=== PATIENT | female | born 1990 | race Caucasian/White ===

== ENCOUNTER 2016-08-15 17:00 | Emergency (ER) | payer OTHER | END 2016-08-15 18:05 | disposition home or self-care (01) | LOC: ER1 17:00 | DX: S00.85XA Superficial foreign body of other part of head, initial encounter (principal); F17.210 Nicotine dependence, cigarettes, uncomplicated; W45.8XXA Other foreign body or object entering through skin, initial encounter; Y92.009 Unspecified place in unspecified non-institutional (private) residence as the place of occurrence of the external cause | CPT/HCPCS: 99283 ==

== ENCOUNTER 2021-01-25 04:33 | Inpatient (IN) | payer OTHER ==
[~2021-01-25 04:33] MED LIST: KEFLEX CAP 500500 MG PO; LODINE CAP 300300 MG PO; PYRIDIUM100 MG PO; ZOFRAN ODT 4 MG4 MG SL
[2021-01-25 05:36] LABS: HEMOGLOBIN 12.6 gm/dl (12.3-15.3); RED BLOOD COUNT 4.28 M/UL (4.00-5.10); WHITE BLOOD COUNT 9.3 K/UL (4.5-11.0)
[2021-01-26 11:10] LABS: HIV SCREEN 4TH GENERATION WRFX Non Reactive (Non Reactive)
[2021-01-26 13:11] LABS: TREPONEMA PALLIDUM ANTIBODIES Non Reactive (Non Reactive)
[2021-01-27 07:11] LABS: HBSAG SCREEN Negative (Negative); HCV ANTIBODY <0.1 (0.0-0.9)
== END 2021-01-25 07:41 | disposition short-term general hospital (02) | DRG 832 ==
LOC: GENOP 04:33 → CDU 04:58
PROVIDERS: ADMIT Obstetrics & Gynecology
PROC: 4A1HXCZ Monitoring of Products of Conception, Cardiac Rate, External Approach (ICD-10-PCS; principal; 2021-01-25)
DX: O42.913 Preterm premature rupture of membranes, unspecified as to length of time between rupture and onset of labor, third trimester (principal); O99.323 Drug use complicating pregnancy, third trimester; O99.343 Other mental disorders complicating pregnancy, third trimester; Z3A.33 33 weeks gestation of pregnancy; F41.9 Anxiety disorder, unspecified; F32.9 Major depressive disorder, single episode, unspecified; F17.210 Nicotine dependence, cigarettes, uncomplicated; F12.90 Cannabis use, unspecified, uncomplicated; O99.333 Smoking (tobacco) complicating pregnancy, third trimester
CPT/HCPCS: 80307; 81001; 85025; 86780; 86803; 86900; 86901; 87340; 87389; 96360; 96365; 96367; 96372; J0702; J3475; U0002

== ENCOUNTER 2021-09-21 14:23 | Emergency (ER) | payer OTHER ==
[2021-09-21 15:25] LABS: HEMOGLOBIN 15.4 gm/dl (12.3-15.3); RED BLOOD COUNT 5.04 M/UL (4.00-5.10); WHITE BLOOD COUNT 8.7 K/UL (4.5-11.0)
[2021-09-21 15:51] LABS: BUN/CREATININE RATIO 18 (0-10)
== END 2021-09-21 19:00 | disposition home or self-care (01) ==
LOC: ER1 14:23
PROVIDERS: Physician Assistant Medical
DX: R10.13 Epigastric pain (principal); R11.2 Nausea with vomiting, unspecified; R07.9 Chest pain, unspecified; F17.210 Nicotine dependence, cigarettes, uncomplicated
CPT/HCPCS: 71045; 80053; 81001; 82550; 82553; 83690; 84484; 85025; 93005; 99283